=== PATIENT | male | born 1960 | race Caucasian/White ===

== ENCOUNTER → 2020-05-27 | Outpatient (CLI) | payer OTHER ==
[2020-05-27 13:52] LABS: FOLATE LEVEL > 20.0 ng/mL (3.1-17.5)
== END | disposition home or self-care (01) ==
LOC: CFH 10:23
PROVIDERS: ATTEND Nurse Practitioner Family
DX: G62.9 Polyneuropathy, unspecified (principal); R20.8 Other disturbances of skin sensation
CPT/HCPCS: 36415; 82175; 82300; 82306; 82390; 82525; 82607; 82746; 83655; 83825; 84155; 84165; 84252; 84425